=== PATIENT | male | born 1970 | race Caucasian/White ===

== ENCOUNTER → 2017-02-09 | Outpatient (CLI) | payer OTHER ==
[~2017-02-09] MED LIST: ALUM-35 PO; ASPI81TA28 PO; ATEN-171 PO; CGN1 PO; CLON1TAB3 PO; DOXE100C4 PO; ENAL20TA PO; GLC/500 PO; GLUC-338 PO; HYDR50CA2 PO; INSHI7030 SC; INSHRIE SC; PHEN32.44 PO; PRAV20TA2 PO; RISP2TAB3 PO; SNQ50 PO; ZNT/150 PO
== END ==
LOC: C.LABSPEC 12:32
PROVIDERS: ATTEND Nurse Practitioner Adult Health
DX: R56.9 Unspecified convulsions (principal)